=== PATIENT | male | born 1985 | race Caucasian/White ===

== ENCOUNTER 2017-03-06 19:37 | Emergency (ER) | payer OTHER ==
--- NOTE | 2017-03-06 20:31 | RAD ---
LUMBAR SPINE RADIOGRAPHS THREE VIEWS: 03/06/17 PROVIDED CLINICAL HISTORY: Low back pain. FINDINGS: Five nonribbearing lumbar type vertebral bodies are present. Lumbar alignment appears normal. Vertebr al body heights appear preserved. Pedicles appear intact. No lytic or blastic lesions are seen. IMPRESSION: No evidence for an acute osseous abnormality. POS: [facility]
[2017-03-06] MEDS ORDERED: Ketorolac Tromethamine 60 MG/2 ML VIAL ONE (22:31)
[2017-03-06] MEDS ORDERED: Acetaminophen 500 MG TAB ONE (22:31)
[2017-03-06] MEDS ORDERED: Dexamethasone 10 MG/ML VIAL ONE (22:31)
== END 2017-03-06 22:46 | disposition home or self-care (01) ==
LOC: SCSER 19:37
DX: S39.012A Strain of muscle, fascia and tendon of lower back, initial encounter (principal); X58.XXXA Exposure to other specified factors, initial encounter
CPT/HCPCS: 72100; 96372; J1100; J1885